=== PATIENT | male | born 2000 | race Caucasian/White ===

== ENCOUNTER 2019-05-29 15:21 | Emergency (ER) | payer OTHER ==
--- NOTE | 2019-05-29 18:02 | EDM.PDOC ---
ED HPI GENERAL MEDICAL PROBLEM - General Chief Complaint: General Stated Complaint: nose bleed Time Seen by Provider: 05/29/19 16:45 Source of Information: Reports: Patient History Limitations: Reports: No Limitations - History of Present Illness INITIAL COMMENTS - FREE TEXT/NARRATIVE: According to patient he claims that he has been having nasal bleeds on and off since last Tuesday. Pt claims that when he has nasal bleeds he feels dull headache an sometimes nausea. The nose bleed does not stop with pressure to the nose and bleeds for about 30 minutes to 1 hour and resolves. HAs happened several times in the past 5days. Pt is not having active nasal bleed now but had one earlier today Pt claims that he does not use any street drugs. No weakness. No vomiting. No loss of consciousness. No other complaints. Onset Date: 05/25/19 Duration: Intermittent, Waxing/Waning Severity: Moderate Improves with: Reports: None Worsens with: Reports: None Associated Symptoms: Reports: Headaches, Nausea/Vomiting. Denies: Confusion, Chest Pain, Cough, Diaphoresis, Fever/Chills, Rash, Seizure, Shortness of Breath , Syncope, Weakness - Related Data Allergies Allergy/AdvReac Type Severity Reaction Status Date / Time No Known Allergies Allergy Verified 05/29/19 17:15 Home Meds: Home Meds NK [No Known Home Meds] 05/29/19 [History] ED ROS GENERAL - Review of Systems Review Of Systems: See Below Constitutional: Denies: Fever, Chills, Weakness HEENT: Reports: Nosebleed. Denies: Ear Pain, Rhinitis, Throat Pain Respiratory: Denies: Shortness of Breath, Pleuritic Chest Pain, Cough, Sputum Cardiovascular: Denies: Chest Pain, Lightheadedness GI/Abdominal: Reports: Nausea. Denies: Abdominal Pain, Constipation, Diarrhea, Flatus, Vomiting : Denies: Flank Pain, Frequency Musculoskeletal: Denies: Joint Pain, Joint Swelling Skin: Denies: Bruising, Pruritis, Rash, Wound Neurological: Reports: Headache. Denies: Confusion, Dizziness, Numbness, Syncope, Tingling, Weakness Hematologic/Lymphatic: Denies: Anemia, Easy Bleeding, Easy Bruising ED EXAM, GENERAL - Physical Exam Exam: See Below Exam Limited By: No Limitations General Appearance: Alert, WD/WN, No Apparent Distress, Obese Eye Exam: Bilateral Eye: EOMI, PERRL Ears: Normal External Exam, Normal Canal, Hearing Grossly Normal, Normal TMs Ear Exam: Bilateral Ear: Auricle Normal, Canal Normal, TM normal Nose: Other (there is a dry bloody scab over the right anterior nasal septum. No active bleeding noted.). No: Nasal Deformity, Nasal Swelling, Nasal Drainage , Clear Rhinorrhea Throat/Mouth: Normal Inspection, Normal Lips, Normal Teeth, Normal Gums, Normal Oropharynx, Normal Voice, No Airway Compromise Head: Atraumatic, Normocephalic Neck: Normal Inspection, Supple, Non-Tender, Full Range of Motion Respiratory/Chest: No Respiratory Distress, Lungs Clear, Normal Breath Sounds, No Accessory Muscle Use, Chest Non-Tender Cardiovascular: Normal Peripheral Pulses, Regular Rate, Rhythm, No Edema, No Gallop, No JVD, No Murmur, No Rub Extremities: Normal Inspection, Normal Range of Motion, Non-Tender, Normal Capillary Refill, No Pedal Edema Neurological: Alert, Oriented, CN II-XII Intact, Normal Cognition, Normal Gait, Normal Reflexes, No Motor/Sensory Deficits Course - Vital Signs Text/Narrative:: Pt's initial blood pressure on arrival was 158/71mmhg. His clinical exam shows old bloody scab over the anterior nasal septum. There is no acitve bleeding now. I did get CBC, PT and INR. All his lab work is normal. Pt reassured that he does not have any clotting or bleeding mechanism causing his nasal bleed. He does not have habit of nose picking either. As his episodes of nasal bleed are asso with headache and nausea, it does appear like blood pressure might be the cause of his bleeds. I have advised him to get his blood pressure checked every time he feels headache or nausea or nasal bleed. Keep a chart of it. If the pressure are consistently above 140/90mmhg, he should see his primary care provider and have further workup. Advised exercise and weight loss. Meanwhile advised nasal pinching for 2 minutes and if the bleeding continues after nose pinching to apply 2 sprays of Afrin in the nostril. If it still persists should go to the nearest emergency room. Pt understands and agrees with the plan. Last Recorded V/S: Last Vital Signs Temp 99.7 F 05/29/19 17:08 Pulse 86 05/29/19 17:08 Resp 16 05/29/19 17:08 BP 151/73 H 05/29/19 17:08 Pulse Ox 100 05/29/19 17:08 - Orders/Labs/Meds Labs: Laboratory Tests 05/29/19 05/29/19 Range/Units 17:26 17:26 WBC 9.1 (4.0-11.0) K/uL RBC 5.01 (4.50-6.50) M/uL Hgb 16.1 (13.0-18.0) g/dL Hct 44.4 (40.0-54.0) % MCV 89 (76-96) fL MCH 32.1 H (27.0-32.0) pg MCHC 36.3 H (31.0-35.0) g/dL RDW 12.8 (11.0-16.0) % Plt Count 271 (150-400) K/uL MPV 9.5 (6.0-10.0) fL Neut % (Auto) 57.4 (45.0-70.0) % Lymph % (Auto) 29.2 (20.0-40.0) % Crane % (Auto) 8.8 (3.0-10.0) % Eos % (Auto) 4.2 (1.0-5.0) % Baso % (Auto) 0.4 (0.0-0.5) % Neut # (Auto) 5.21 (2.00-7.50) K/uL Lymph # (Auto) 2.65 (1.50-4.00) K/uL Crane # (Auto) 0.80 (0.20-0.80) K/uL Eos # (Auto) 0.38 (0.04-0.40) K/uL Baso # (Auto) 0.04 (0.02-0.10) K/uL PT 10.1 (9.0-11.5) sec INR 1.0 (1.0-3.5) Departure - Departure Time of Disposition: 15:45 Disposition: Home, Self-Care 01 Condition: Fair Clinical Impression: Nasal bleeding, Elevated blood pressure reading - Discharge Information *PRESCRIPTION DRUG MONITORING PROGRAM REVIEWED*: Not Applicable *COPY OF PRESCRIPTION DRUG MONITORING REPORT IN PATIENT DONNY: Not Applicable Instructions: Preventing Hypertension, Nosebleed, [id number] Referrals: PCP,None [Primary Care Provider] - Forms: ED Department Discharge Additional Instructions: Squeeze the nose tight for a full two minutes Check your blood pressure when you have a nose bleed -check the blood pressure for a full two weeks and writing them down every time. -You can buy a blood pressure cuff at the local pharmacy, they have manual cuffs that you apply to the arm or wrist, read the manual. Return to your primary provider in the next two weeks to follow up on the blood pressure. Buy a bottle of Afrin nose spray: If squeezing the nose does not work spray two sprays into the affected nare then hold squeeze the nose again. If neither of these steps work: Return to the ER - Problem List & Annotations (1) Elevated blood pressure reading SNOMED Code(s): 00553966 Code(s): R03.0 - ELEVATED BLOOD-PRESSURE READING, W/O DIAGNOSIS OF HTN Status: Acute (2) Nasal bleeding SNOMED Code(s): 864834251 Code(s): R04.0 - EPISTAXIS Status: Acute - Problem List Review Problem List Initiated/Reviewed/Updated: Yes - Assessment/Plan Assessment:: Nasal bleeding recurrent Elevated Blood pressure reading Plan: Pt's initial blood pressure on arrival was 158/71mmhg. His clinical exam shows old bloody scab over the anterior nasal septum. There is no acitve bleeding now. I did get CBC, PT and INR. All his lab work is normal. Pt reassured that he does not have any clotting or bleeding mechanism causing his nasal bleed. He does not have habit of nose picking either. As his episodes of nasal bleed are asso with headache and nausea, it does appear like blood pressure might be the cause of his bleeds. I have advised him to get his blood pressure checked every time he feels headache or nausea or nasal bleed. Keep a chart of it. If the pressure are consistently above 140/90mmhg, he should see his primary care provider and have further workup. Advised exercise and weight loss. Meanwhile advised nasal pinching for 2 minutes and if the bleeding continues after nose pinching to apply 2 sprays of Afrin in the nostril. If it still persists should go to the nearest emergency room. Pt understands and agrees with the plan.
== END 2019-05-29 18:05 | disposition home or self-care (01) ==
LOC: LB.ED 15:21
DX: R04.0 Epistaxis (principal); R03.0 Elevated blood-pressure reading, without diagnosis of hypertension
CPT/HCPCS: 36415; 85025; 85610; 99283